=== PATIENT | female | born 1950 | race Caucasian/White ===

== ENCOUNTER 2021-05-13 19:38 | Emergency (ER) | payer OTHER, MEDICARE | END 2021-05-13 21:32 | disposition home or self-care (01) | LOC: ER1 19:38 | DX: S16.1XXA Strain of muscle, fascia and tendon at neck level, initial encounter (principal); S46.012A Strain of muscle(s) and tendon(s) of the rotator cuff of left shoulder, initial encounter; V49.40XA Driver injured in collision with unspecified motor vehicles in traffic accident, initial encounter; Y92.410 Unspecified street and highway as the place of occurrence of the external cause | CPT/HCPCS: 70450; 72125; 73030; 99284 ==